=== PATIENT | male | born 1990 | race African-American/Black ===

== ENCOUNTER 2018-10-27 05:51 | Day surgery (SDC) | payer OTHER ==
[2018-10-27] MEDS ORDERED: GLYCOPYRROLATE 0.4 MG INJ (07:00)
[2018-10-27] MEDS ORDERED: NEOSTIGMINE 3 MG/3 ML SYRINGE (07:00)
[2018-10-27] MEDS: LACTATED RINGER'S 1,000 ML IV (07:15)
[2018-10-27] MEDS ORDERED: ONDANSETRON 4 MG INJ IV ×2 (07:30→12:00)
[2018-10-27] MEDS ORDERED: MEPERIDINE 25 MG INJ IV (07:30)
[2018-10-27] MEDS ORDERED: HYDROmorphONE 1 MG/5 ML IV SYRINGE IV ×3 (07:30→12:00)
[2018-10-27] MEDS ORDERED: DIPHENHYDRAMINE 50 MG INJ IV ×2 (07:30→12:00)
[2018-10-27] MEDS ORDERED: FENTAnyl 50 MCG/ML VIAL IV ×2 (07:30→12:00)
[2018-10-27] MEDS ORDERED: METOCLOPRAMIDE 10 MG INJ IV (07:30)
[2018-10-27] MEDS ORDERED: MIDAZOLAM 1 MG/ML 2 ML INJ (07:41)
[2018-10-27] MEDS: EPINEPHrine 1 MG/ML 30 ML INJ IRR (08:27)
[2018-10-27] MEDS: morphine SULFATE/PF (10 MG/10 ML) INJ (08:29)
[2018-10-27] MEDS ORDERED: LIDOCAINE 2% (SDV) 5 ML INJ (10:31)
[2018-10-27] MEDS ORDERED: ROCURONIUM 50 MG INJ (10:31)
[2018-10-27] MEDS ORDERED: ONDANSETRON 4 MG INJ (10:31)
[2018-10-27] MEDS ORDERED: PROPOFOL 20 ML (10:31)
[2018-10-27] MEDS ORDERED: ROPIVACAINE 0.5 % 30 ML VIAL (10:37)
[2018-10-27] MEDS ORDERED: PROVENTIL HFA 6.7GM INHALER (11:35)
[2018-10-27] MEDS ORDERED: OXYCODONE/ACETAMINOPHEN (5/325) TAB PO (12:00)
[2018-10-27] MEDS ORDERED: ALBUTEROL 0.083% (NEB) 2.5 MG/3 ML AMP HHN (12:00)
[2018-10-27] MEDS: LABETALOL HCL 20MG INJ IV (12:04)
== END 2018-10-27 15:30 | disposition home or self-care (01) ==
LOC: SDS 05:51
DX: S43.431A Superior glenoid labrum lesion of right shoulder, initial encounter (principal); M24.011 Loose body in right shoulder; M65.9 Synovitis and tenosynovitis, unspecified; X58.XXXA Exposure to other specified factors, initial encounter; Y93.89 Activity, other specified; Y92.89 Other specified places as the place of occurrence of the external cause; Y99.8 Other external cause status
CPT/HCPCS: 29806